=== PATIENT | male | born 1950 | race African-American/Black ===

== ENCOUNTER 2016-07-31 07:10 | Observation (INO) | payer OTHER ==
[2016-07-31] MEDS ORDERED: NS 1,000 ML IV ONE (07:15)
--- NOTE | 2016-07-31 07:34 | CPEKG ---
Heart Rate: 83 RR Interval: 723 P-R Interval: 196 QRSD Interval: 90 QT Interval: 380 QTC Interval: 447 P Cu[place]: 75 QRS [place]: -52 T Wave [place]: 56 EKG Severity - ABNORMAL ECG - EKG Impression: SINUS RHYTHM EKG Impression: LEFT ANTERIOR FASCICULAR BLOCK Electronically Signed By: Nathen Lewis 31-Jul-2016 10:43:33
[2016-07-31 08:16] LABS: % IMMATURE GRANULYOCYTES 0.3 % (0.0-1.1); ABSOLUTE IMMATURE GRANULOCYTES 0.02 10^3/uL (0.00-0.10); ADD DIFF? NO; ADD MORPH? NO; ADD SCAN? NO; ATYPICAL LYMPHOCYTE FLAG 0 (0-99); FRAGMENT RBC FLAG 0 (0-99); HEMATOCRIT 43.7 % (40.0-51.0); HEMOGLOBIN 15.3 g/dL (13.7-17.5); LEFT SHIFT FLG 0 (0-99); LIPEMIA HEMOLYSIS FLAG 90 (0-99); MEAN CELL HEMOGLOBIN 29.7 pg (27.9-34.1); MEAN CELL VOLUME 84.7 fL (81.5-99.8); MEAN PLATELET VOLUME 9.5 fL (8.7-11.7); PLATELET CLUMPS FLAG 10 (0-99); PLATELET COUNT 187 10^3/uL (150-400); RED BLOOD CELL COUNT 5.16 10^6/uL (4.40-6.38)
[2016-07-31] MEDS ORDERED: BUPIVACAINE 0.5% 30 ML SDV ONE (08:23)
[2016-07-31] MEDS ORDERED: HEPARIN 10,000 UNIT/10 ML MDV ONE (08:23)
[2016-07-31] MEDS ORDERED: ISOPROTERENOL HCL 0.2 MG/ML 5ML AMP ONE (08:23)
[2016-07-31] MEDS ORDERED: LIDOCAINE 1% 30 ML SDV ONE (08:23)
[2016-07-31 08:25] LABS: INR 0.94 (0.83-1.16); PROTIME(PATIENT) 12.5 SEC (12.0-15.0)
[2016-07-31 08:26] LABS: APTT 26.8 SEC (23.0-38.0)
[2016-07-31] MEDS ORDERED: REMIFENTANIL HCL 1 MG VIAL ONE (08:27)
[2016-07-31] MEDS ORDERED: PROPOFOL/EMULSION 500 MG/50 ML BOTTLE IV ONE (08:27)
[2016-07-31] MEDS ORDERED: fentaNYL 100 MCG/2 ML INJ ONE (08:27)
[2016-07-31 08:30] LABS: ANION GAP 9 mEq/L (8-16); CALCIUM 8.8 mg/dL (8.5-10.4); CARBON DIOXIDE 25 mEq/l (22-31); CHLORIDE 107 mEq/L (97-110); CREATININE 0.7 mg/dL (0.7-1.3); GLOMERULAR FILTRATION RATE > 60; GLUCOSE 186 mg/dL (70-100); MAGNESIUM 1.8 mg/dL (1.6-2.3); POTASSIUM 3.9 mEq/L (3.5-5.2); SODIUM 141 mEq/L (134-144)
[2016-07-31] MEDS ORDERED: MIDAZOLAM 2 MG/2 ML VIAL ONE (08:32)
[2016-07-31] MEDS ORDERED: ONDANSETRON 4 MG/2 ML VIAL ONE (10:41)
[2016-07-31] MEDS ORDERED: ONDANSETRON 4 MG/2 ML VIAL IVP PRN (10:49)
[2016-07-31] MEDS ORDERED: ACETAMINOPHEN 325 MG TAB PO PRN (10:49)
[2016-07-31] MEDS ORDERED: OXYCODONE/APAP 5/325 TAB PO PRN (10:49)
--- NOTE | 2016-07-31 10:49 | EPPROC ---
Electrophysiology Procedure Note: ELECTROPHYSIOLOGIC STUDY AND CATHETER MEDIATED ABLATION OF SLOW/FAST AV LESLIE REENTRY TACHYCARDIA PROCEDURES PERFORMED: 51600-27 EP evaluation with RA/RV/LA pace/record, with arrhythmia induction 32768-53 EP evaluation with RA/RV pace record, insert/reposition catheter, with arrhythmia induction 52917 Intracardiac catheter ablation, SVT arrhythmogenic focus 56805 3D mapping Fluoroscopy INDICATION: Recurrent SVT PROCEDURE: Catheters & Anesthesia: The patient arrived in the Electrophysiology Laboratory in the fasting state. The right clavicular region, right groin, and left groin area were prepped and draped in the usual sterile manner. Anesthesiologist Dr. Abimael Barrera administered general anesthesia. Appropriate non-invasive blood pressure, pulse oximetry and end-tidal CO2 monitoring was established. All catheters were placed percutaneously using the modified Seldinger technique , and advanced into position under fluoroscopic guidance. One #6 Macedonian hexapolar non-deflectable electrode catheter was inserted into the right atrial appendage via the left femoral vein (2mm spacing; except the proximal ring which was 25cm from the tip - used for unipolar recordings). One #7 Macedonian deflectable octapolar electrode catheter was advanced to the His-bundle position via the left femoral vein (2mm spacing). One #7 Macedonian deflectable quadrapolar catheter was advanced to the anteroseptal right ventricle via the right femoral vein. One #7 Macedonian deflectable catheter with 10 pairs of electrodes was placed via the right femoral vein into the coronary sinus. Heparin was given to keep ACT > 200 s. Programmed stimulation was performed from the right atrium, right ventricle and coronary sinus (left atrium). Parahisian pacing demonstrated constant H-A interval with changing V-A intervals and stimulus-A intervals during capture and loss of capture of proximal RBB proving retrograde conduction over AV node. AVNRT was induced easily during infusion of isoproterenol 2 mcg/min. Ventricular extrastimuli delivered during tachycardia without altering antegrade His bundle activation did not advance next atrial potential, indicating that the tachycardia was not utilizing an accessory pathway for retrograde conduction. VA interval was 0 ms. Post entrainment of the tachycardia from the ventricle, there was VAHV response. Mapping of the right atrium and coronary sinus during AVNRT identified earliest atrial activation above the tendon of Lito at a level slightly posterior to the level of the His bundle, consistent with retrograde conduction over the fast AV leslie pathway. A #8 Macedonian deflectable quadrapolar electrode catheter (2mm-5mm-2mm spacing) with 4 mm tip electrode and sensor for the 3D mapping Carto system was advanced to the right atrium. 3 D mapping of the inter-atrial septum and coronary sinus was performed and location of the AV node was marked. A SL2 sheath was used. RF applications were delivered to the region between the tricuspid annulus and the coronary sinus ostium, at the level of the upper edge of the coronary sinus ostium. Radiofrequency applications were also delivered along the roof of the proximal coronary sinus. Junctional rhythm occurred during all of the RF applications. Programmed stimulation was continued post ablation at baseline and during graded doses of isoproterenol upto 8mcg/min. Sustained AVNRT was not inducible. There were single echo beats. The catheters were removed. The long sheath was changed to a short 9 Fr sheath. The patient was transferred to the cardiovascular holding area in stable condition. Vascular access sheaths were removed in the holding area. There were no apparent complications. Results: A. Spontaneous Intervals: Pre ablation SCL 920 ms AH 85 ms HV 45 ms Post ablation SCL 820 ms AH 60 ms HV 45 ms B. Antegrade AV leslie function (decremental pacing) Pre ablation FPERP 650 ms SPERP 340 ms WBB CL 330 ms (AH jump from 220 ms to 310 ms at FPERP) Post ablation FPERP 510 ms WBB CL 500 ms C. Retrograde AV leslie function (decremental pacing) Pre ablation FPERP 410 ms WBB CL 400 ms D. Arrhythmias: Sustained slow/fast AVNRT Cycle length 310 ms, AH interval 250 ms, BARRIOS interval 60 ms VA interval 0 ms CONCLUSIONS 1. 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 ( Slow/fast AVNRT). 2. Successful ablation of the slow AV leslie pathway with elimination of 1:1 antegrade conduction over the slow AV leslie pathway, all retrograde conduction over the slow AV leslie pathway and the inducibility of AVNRT. 3. No complications. Patient Problems: Problems Problem Status Diagnosed Supraventricular tachycardia Acute
[2016-07-31] MEDS ORDERED: Dulaglutide [Trulicity] 0.75 MG SQ SCH (11:00)
--- NOTE | 2016-07-31 11:11 | CPEKG ---
Heart Rate: 120 RR Interval: 500 P-R Interval: 160 QRSD Interval: 86 QT Interval: 328 QTC Interval: 464 P Welch: 65 QRS Welch: -50 T Wave Welch: 84 EKG Severity - ABNORMAL ECG - EKG Impression: SINUS TACHYCARDIA EKG Impression: LEFT ANTERIOR FASCICULAR BLOCK Electronically Signed By: Margarita Mantilla 31-Jul-2016 12:21:13
[2016-07-31] MEDS ORDERED: CEPACOL LOZENGE PO PRN (12:13)
[2016-07-31 12:17] LABS: ANION GAP 10 mEq/L (8-16); CARBON DIOXIDE 24 mEq/l (22-31); CHLORIDE 110 mEq/L (97-110); CREATININE 0.8 mg/dL (0.7-1.3); GLOMERULAR FILTRATION RATE > 60; GLUCOSE 228 mg/dL (70-100); MAGNESIUM 1.7 mg/dL (1.6-2.3); SODIUM 144 mEq/L (134-144)
[2016-08-01 05:32] LABS: % IMMATURE GRANULYOCYTES 0.3 % (0.0-1.1); ABSOLUTE IMMATURE GRANULOCYTES 0.03 10^3/uL (0.00-0.10); ADD DIFF? NO; ADD MORPH? NO; ADD SCAN? NO; ATYPICAL LYMPHOCYTE FLAG 0 (0-99); FRAGMENT RBC FLAG 0 (0-99); HEMATOCRIT 41.7 % (40.0-51.0); HEMOGLOBIN 14.6 g/dL (13.7-17.5); LEFT SHIFT FLG 30 (0-99); LIPEMIA HEMOLYSIS FLAG 90 (0-99); MEAN CELL HEMOGLOBIN 29.8 pg (27.9-34.1); MEAN CELL VOLUME 85.1 fL (81.5-99.8); MEAN PLATELET VOLUME 9.4 fL (8.7-11.7); PLATELET CLUMPS FLAG 10 (0-99); PLATELET COUNT 197 10^3/uL (150-400); RED CELL DISTRIBUTION WIDTH 12.9 % (11.5-15.2)
[2016-08-01 05:50] LABS: ANION GAP 8 mEq/L (8-16); CALCIUM 9.4 mg/dL (8.5-10.4); CARBON DIOXIDE 26 mEq/l (22-31); CHLORIDE 107 mEq/L (97-110); CREATININE 0.7 mg/dL (0.7-1.3); GLOMERULAR FILTRATION RATE > 60; GLUCOSE 207 mg/dL (70-100); POTASSIUM 4.2 mEq/L (3.5-5.2); SODIUM 141 mEq/L (134-144)
[2016-08-01 05:52] LABS: INR 1.02 (0.83-1.16); PROTIME(PATIENT) 13.3 SEC (12.0-15.0)
[2016-08-01 05:59] LABS: TROPONIN I 0.162 ng/mL (0-0.034)
[2016-08-01 06:04] LABS: CREATINE KINASE-MB FRACTION 5.72 ng/mL (0-3.19)
[2016-08-01 06:22] LABS: CK-MB INTERPRETATION NEGATIVE (NEGATIVE)
--- NOTE | 2016-08-01 08:41 | ECHO ---
[id number] + + [address] : : [place] [address] : : [phone] + + Adult Echocardiographic Report + ----+ :Name: MAGGIE SELLERS Eddieudnirmala Date: 08/01/2016 07:39 AM : : Hospital Admission Number: [id number] : :: 1950 Gender: Male Height: 67 i n : :Age: 65 yrs Race: BAA Weight: 179 lb : :Reason For Study: avnrt F/U Post EP Study : : BSA: 1.9 met ers2: + ----+ MMode/2D Measurements & Calculations IVSd: 1.6 cm RVDd: 3.2 cm FS: 27.8 % LVOT diam: 2.2 cm LVPWd: 1.4 cm LVIDd: 3.7 cm EDV(Teich): LVOT area: LVIDs: 2.7 cm 59.5 ml 3.7 cm2 ESV(Teich): 27.0 ml EF(Teich): 54.7 % LVLd ap4: 6.5 cm SV(MOD-sp4): EDV(MOD-sp4): 46.0 ml 62.0 ml LVLs ap4: 4.0 cm ESV(MOD-sp4): 16.0 ml EF(MOD-sp4): 74.2 % Normal Measurement Values: + + :LVIDd (3.5-5.7cm) IVSd (0.6-1.1cm) LVPWd (0.6-1.1cm) Aortic Root (2.0-3.7cm)Left Atrium (1.5-4.0cm): :LV Vol(d) (76-115ml) LV Vol(s) (29-48ml) Ejec Fraction (50-65%)PV Aquiles (0.6- 1.2m/s) TV Aquiles (0.4-1.0m/s) : :MV E Aquiles (0.8-1.0m/s)MV A Aquiles (0.3-1.0m/s)LVOT Aquiles (0.7-1.2m/s) Asc Ao Aquiles ( 0.9-1.8m/s) : + + Doppler Measurements & Calculations MV E max aquiles: MV V2 max: Ao V2 max: LV V1 max: 63.2 cm/sec 97.1 cm/sec 103.2 cm/sec 79.5 cm/sec MV A max aquiles: MV max PG: Ao max P.3 mmHg LV V1 max P.2 cm/sec 3.8 mmHg Ao mean P.5 mmHg MV E/A: 1.0 MV V2 mean: 1.6 mmHg LV V1 mean PG: MV dec time: 54.6 cm/sec Ao V2 mean: 1.1 mmHg 0.24 sec MV mean P.5 cm/sec LV V1 mean: 1.4 mmHg Ao V2 VTI: 19.4 cm 49.3 cm/sec MV V2 VTI: 26.0 cmAVA(I,D): 3.2 cm2 LV V1 VTI: 17.0 cm MVA(VTI): 2.4 cm2 CASANDRA(V,D): 2.8 cm2 SV(LVOT): 62.3 ml PA V2 max: TR max aquiles: 80.7 cm/sec 255.8 cm/sec PA max PG: TR max P.6 mmHg 26.2 mmHg RAP systole: 10.0 mmHg RVSP(TR): 36.2 mmHg Left Ventricle The left ventricle is normal in size and function. There is mild to moderate concentric left ventricular hypertrophy. Ejection Fraction = 65-70%. No regional wall motion abnormalities noted. Right Ventricle The right ventricle is normal in size and function. Atria The left atrial size is normal. Right atrial size is normal. The interatrial septum is intact with no evidence for an atrial septal defect. Mitral Valve The mitral valve is normal in structure and function. There is no mitral valve stenosis. There is trace mitral regurgitation. Tricuspid Valve The tricuspid valve is normal in structure and function. There is no tricuspid stenosis. There is mild tricuspid regurgitation. Right ventricular systolic pressure is normal. Aortic Valve The aortic valve is normal in structure and function. There is no aortic stenosis. There is no aortic insufficiency. Pulmonic Valve The pulmonic valve is normal in structure and function. There is no pulmonic valvular stenosis. There is no pulmonic valvular regurgitation. Great Vessels The aortic root is normal size. Pericardium/Pleural There is no pericardial effusion. There is a fat pad seen. Conclusion A complete two-dimensional transthoracic echocardiogram was performed (2D, M-mode, Doppler and color flow Doppler). The left ventricle is normal in size and function. There is mild to moderate concentric left ventricular hypertrophy. Ejection Fraction = 65-70%. There is trace mitral regurgitation. There is mild tricuspid regurgitation. Right ventricular systolic pressure is normal. The aortic valve is normal in structure and function. There is no pericardial effusion. Final Reading Physician: Nathen Lewis MD electronically signed on 08/01/2016 08:40 AM Ordering Physician: Nathen Lewis Performed By: Diane Arteaga
[2016-08-01 08:48] VITALS: BP 138/73; PULSE 72; RESP 14; TEMP 97.6; O2SAT 92
--- NOTE | 2016-08-01 08:55 | CPEKG ---
Heart Rate: 76 RR Interval: 789 P-R Interval: 180 QRSD Interval: 86 QT Interval: 388 QTC Interval: 437 P Summit: 38 QRS Summit: -37 T Wave Summit: 54 EKG Severity - OTHERWISE NORMAL ECG - EKG Impression: SINUS RHYTHM EKG Impression: LEFT AXIS DEVIATION Electronically Signed By: Nathen Lewis 01-Aug-2016 09:03:09
[2016-08-01] MEDS ORDERED: ATORVASTATIN CALCIUM 10 MG TAB PO SCH (09:00)
[2016-08-01] MEDS ORDERED: metFORMIN HCL 500 MG TAB PO SCH (09:00)
[2016-08-01] MEDS ORDERED: glyBURIDE 5 MG TAB PO SCH (09:00)
[2016-08-01] MEDS ORDERED: ASPIRIN 81 MG CHEWABLE TAB PO SCH (09:00)
[2016-08-01] MEDS ORDERED: MULTIVITAMINS 1 EACH TAB PO SCH (09:00)
[2016-08-01] MEDS ORDERED: HYDROCHLOROTHIAZIDE 25 MG TAB PO SCH (09:00)
--- NOTE | 2016-08-01 11:11 | GDS ---
[f rep st] DISCHARGE SUMMARY DISCHARGE DIAGNOSIS: AVNRT status post ablation. HOSPITAL COURSE: For detailed H and P, please see prior dictation. Briefly, Luis Fajardo is a 65-year-old male with a long history of palpitations. His events would last for up to 4 hours and were associated with fatigue and palpitations. He did have some triggers for his arrhythmia including exercise. He wore an event monitor, and was documented to have SVT with rates of 200 beats per minute. Vagal maneuvers were unsuccessful and he was not interested in medical therapy. He decided to proceed with an EP study and possible ablation. This was performed by Dr. Nathen Lewis on July 31, 2016. He was found to have AV jay reentrant tachycardia, which was ablated. The following morning, his troponin was 0.162. He denied any chest discomfort or palpitations. He was monitored on telemetry and remained in normal sinus rhythm. His EKG the day of discharge showed normal sinus rhythm at a rate of 76 with left axis deviation. An echocardiogram showed preserved LV function without any evidence of pericardial effusion. There was mild to moderate LVH and mild TR. DISCHARGE MEDICATIONS: His medications will remain the same. He will continue aspirin 81 mg daily, simvastatin 20 mg daily, Trulicity 0.75 mg subcu every 7 days, HCTZ 25 mg daily, multivitamin daily, glyburide 5 mg daily, metformin 500 mg daily, herbal supplement daily, metoprolol 25 mg daily. PLAN: Luis is currently stable and ready for discharge home. He has been given groin precautions. He will call our office to schedule a followup visit with Dr. Lewis within the next month. /[id number]/MODL MTDD
== END 2016-08-01 11:28 | disposition home or self-care (01) ==
LOC: FCATH 07:10 → F2W 10:49
PROVIDERS: ADMIT Internal Medicine Cardiovascular Disease; ATTEND Internal Medicine Cardiovascular Disease
PROC: 02583ZZ Destruction of Conduction Mechanism, Percutaneous Approach (ICD-10-PCS; principal; 2016-07-31)
PROC: 4A023FZ Measurement of Cardiac Rhythm, Percutaneous Approach (ICD-10-PCS; 2016-07-31)
PROC: 5A1213Z Performance of Cardiac Pacing, Intermittent (ICD-10-PCS; 2016-07-31)
DX: I47.1 Supraventricular tachycardia (principal); E11.9 Type 2 diabetes mellitus without complications; I10 Essential (primary) hypertension; Z79.82 Long term (current) use of aspirin
CPT/HCPCS: 93005; 93306; 93613; 93621; 93623; 93653; C1730; C1731; C1732; G0378; C1893; J1644; J2250; J2405; J2704; J3010